=== PATIENT | female | born 1945 | race Caucasian/White ===

== ENCOUNTER 2017-08-22 15:45 | Emergency (ER) | payer OTHER ==
[~2017-08-22] VITALS: Ht 162.6 cm; Wt 102.1 kg
[~2017-08-22 15:45] MED LIST: ASPIRIN81 M4 PO; ATENOLOL25 M1 PO; BIOTIN1 M1 PO; CIPRO500 M1 PO; COD LIVER OIL1 EAC2 PO; DAILY MULTIPLE1 EACH PO; FLAGYL500 MG PO; LEVSIN0.125 M1 PO; MAGNESIUM OXID400 M1 PO; NEXIUM40 M1 PO; PERCOCET 5-3251 EACH PO; VENLAFAXINE HC150 MG PO; VESICARE10 MG PO; VITAMIN B-121000 MC3 PO; VITAMIN E400 UNIT PO
[2017-08-22 16:21] LABS: ABSOLUTE BASOPHIL COUNT 0 /CUMM (0.0-0.2); ABSOLUTE EOSINOPHIL COUNT 0.3 /CUMM (0.0-0.7); ABSOLUTE GRANULOCYTE CT 3.5 /CUMM (1.4-6.5); ABSOLUTE LYMPH COUNT 1.8 /CUMM (1.2-3.4); ABSOLUTE MONOCYTE COUNT 0.5 /CUMM (0.10-0.60); BASOPHIL % 0.3 % (0.0-2.0); EOSINOPHIL % 4.2 % (0-5); GRANULOCYTE % 57.3 % (42.2-75.2); HEMATOCRIT 41.8 % (37-47); MEAN CORPUSCULAR HGB 29.7 PG (27.0-31.0); MEAN CORPUSCULAR HGB CONC 33.7 G/DL (33.0-37.0); MEAN CORPUSCULAR VOLUME 88.2 FL (81.0-99.0); PLATELET COUNT 225 /CUMM (130-400); RBC DISTRIBUTION WIDTH 13.2 % (11.5-14.5); RED BLOOD CELL CT 4.74 /CUMM (4.20-5.40); WHITE BLOOD CELL COUNT 6.1 /CUMM (4.8-10.8)
[2017-08-22 16:30] LABS: PT 11.3 SEC (9.4-12.5); PTT 28 SEC (25-37)
--- NOTE | 2017-08-22 17:51 | ED GI/GU/ABDOMINAL COMPLAINT ---
History of Present Illness General Chief Complaint: General Adult Stated Complaint: SIB WALKIN, BLOOD IN STOOL, +ND, X 3 DAYS Source: patient Exam Limitations: no limitations Vital Signs & Intake/Output Vital Signs & Intake/Output Vital Signs Date Time Temp Pulse Resp B/P B/P Pulse O2 O2 Flow FiO2 Mean Ox Delivery Rate 08/22 2016 97.2 68 20 136/72 97 Room Air 08/22 1551 96.1 66 16 148/89 97 Room Air ED Intake and Output 08/23 0000 08/22 1200 Intake Total Output Total Balance Patient 225 lb Weight Weight Reported by Patient Measurement Method Allergies Coded Allergies: ceftriaxone (From ROCEPHIN) (Intermediate, ITCHING 03/17/16) Penicillins (THROAT CLOSES 03/17/16) Reconcile Medications Aspirin (Aspirin*) 81 MG TAB.CHEW 1 TAB PO DAILY heart (Reported) HOLD ASPIRIN FOR 10 MORE DAYS Atenolol 25 MG TABLET 1 TAB PO DAILY HEART (Reported) Biotin 1 MG TABLET 1 TAB PO DAILY SUPPLEMENT (Reported) Cyanocobalamin (Vitamin B-12) 1,000 MCG TABLET 1 TAB PO DAILY SUPPLEMENT ( Reported) Esomeprazole (Nexium) 40 MG CAPSULE.DR 1 CAP PO DAILY GI (Reported) Magnesium Oxide 400 MG TABLET 1 TAB PO DAILY SUPPLEMENT (Reported) Multivitamin (Daily Multiple Vitamin) 1 EACH TABLET 1 TAB PO DAILY SUPPLEMENT (Reported) Om3/Dha/Epa/Cod Liver Oil/A/D3 (Cod Liver Oil Softgel) 240-1,000MG CAPSULE 1 CAP PO DAILY SUPPLEMENT (Reported) Oxycodone HCl/Acetaminophen (Percocet 5-325 MG Tablet) 5 MG-325 MG TABLET 1 TAB PO BID severe pain Solifenacin Succinate (Vesicare) 10 MG TABLET 1 TAB PO DAILY BLADDER ( Reported) Venlafaxine HCl (Venlafaxine HCl ER) 150 MG CAP.ER.24H 1 CAP PO DAILY DEPRESSION (Reported) Vitamin E Mixed (Vitamin E) 400 UNIT CAPSULE 1 CAP PO DAILY SUPPLEMENT ( Reported) Triage Note: 72 Y/O FEMALE C/O DIARRHEA SINCE SATURDAY; STATES SHE NOTICED SOME BLOOD IN TOILET BOWEL AND ALSO SOME BLOOD ON TOILET PAPER. DENIES PAIN. +OCCASIONAL CRAMPING IN ABDOMEN BUT DENIES AT PRESENT. +"QUEASY" FEELING TO STOMACH. AFEBRILE WAS SENT TO ED BY URGENT CARE RESTRICTED BAND TO L ARM - HX BREAST CA Triage Nurses Notes Reviewed? yes ? N Is pt currently ? No Onset: Abrupt Duration: day(s): (3), constant Timing: recent history Radiation: no radiation HPI: 72-year-old female comes into the emergency room for further evaluation of some abdominal cramping as well as an episode of blood in her stool 3 days ago with diarrhea. Patient reports that she started with some constipation 3 days ago. She's noticed a small bright red blood clot that passed. Since that she's had some loose stool but denies any recurrent blood in multiple bowel movements. The only blood was that initial episode 3 days ago. She had some straining at that time when she used the bathroom. She reports some intermittent cramping of her abdomen. Denies any fever chills vomiting. Denies any anticoagulants. She 's had routine colonoscopies in the past. (Diaz Salas) Past History Travel History Traveled to [place] past 21 day No Medical History Any Pertinent Medical History? see below for history Neurological: NONE EENT: NONE Cardiovascular: PALPITATIONS Respiratory: asthma Gastrointestinal: GASTRITIS hemorrhoids Hepatic: NONE Renal: NONE Musculoskeletal: osteoarthritis Psychiatric: depression Endocrine: NONE Blood Disorders: NONE Cancer(s): breast cancer LABEL MAKER/Reproductive: NONE History of MRSA: No History of VRE: No History of CDIFF: No Surgical History Surgical History: appendectomy, L BREAST LUMPECTOMY BILATERAL KNEE REPLACEMEN Psychosocial History Who do you live with Patient/Self Services at Home None What is your primary language Tristanian Tobacco Use: Quit >30 days ago Family History Family History, If Any: SISTER FH: breast cancer grandmother FH: breast cancer Hx Contributory? No (Diaz Salas) Review of Systems Review of Systems Constitutional: Reports: no symptoms. EENTM: Reports: no symptoms. Respiratory: Reports: no symptoms. Cardiovascular: Reports: no symptoms. GI: Reports: see HPI. Genitourinary: Reports: no symptoms. Musculoskeletal: Reports: no symptoms. Skin: Reports: no symptoms. Neurological/Psychological: Reports: no symptoms. Hematologic/Endocrine: Reports: no symptoms. Immunologic/Allergic: Reports: no symptoms. All Other Systems: Reviewed and Negative (Diaz Salas) Physical Exam Physical Exam General Appearance: well developed/nourished, no apparent distress, alert Head: atraumatic, normal appearance Eyes: Bilateral: normal appearance. Ears, Nose, Throat, Mouth: hearing grossly normal, moist mucous membrane Neck: normal inspection Respiratory: no respiratory distress Gastrointestinal: soft, non-tender Rectal: heme negative stool, hemmorrhoids (EXTERNAL, NO THROMBOSIS) Back: normal inspection Extremities: normal range of motion Neurologic/Psych: awake, alert Skin: intact, normal color Core Measures ACS in differential dx? No Sepsis Present: No Sepsis Focused Exam Completed? No (Diaz Salas) Progress Differential Diagnosis: colon cancer, Diverticulitis, diverticulosis, ischemic colitis, hemorrhoids, anal fissure, Plan of Care: Orders Procedure Date/time Status MISTAKE 08/22 155 Active TROPONIN LEVEL 08/22 155 Complete PARTIAL THROMBOPLASTIN TIME 08/22 155 Complete PROTHROMBIN TIME 08/22 155 Complete COMPREHENSIVE METABOLIC PANEL 08/22 155 Complete CBC WITHOUT DIFFERENTIAL 08/22 155 Complete EKG 08/22 155 Active TYPE & SCREEN (NOT X-MATCH) 08/22 155 Complete Laboratory Tests 08/22/17 1615: Anion Gap 11, Estimated GFR > 60, BUN/Creatinine Ratio 20.0, Glucose 91, Calcium 9.1, Total Bilirubin 0.4, AST 23, ALT 28, Alkaline Phosphatase 71, Troponin I < 0.01, Total Protein 7.5, Albumin 4.2, Globulin 3.3, Albumin/Globulin Ratio 1.3, PT 11.3, INR 1.04, APTT 28, CBC w Diff NO MAN DIFF REQ, RBC 4.74, MCV 88.2, MCH 29.7, MCHC 33.7, RDW 13.2, MPV 7.0 L, Gran % 57.3, Lymphocytes % 29.4, Monocytes % 8.8, Eosinophils % 4.2, Basophils % 0.3, Absolute Granulocytes 3.5, Absolute Lymphocytes 1.8, Absolute Monocytes 0.5, Absolute Eosinophils 0.3, Absolute Basophils 0 08/22/17 1556: Urine Color Cancelled, Urine Clarity Cancelled, Urine pH Cancelled, Ur Specific [place] Cancelled, Urine Protein Cancelled, Urine Ketones Cancelled, Urine Nitrite Cancelled, Urine Bilirubin Cancelled, Urine Urobilinogen Cancelled, Ur Leukocyte Esterase Cancelled, Ur Microscopic Cancelled, Urine Hemoglobin Cancelled, Urine Glucose Cancelled Microbiology 08/22 1821 STOOL: Cryptosporidium Antigen - CAN Cancelled: SPECIMENS NEVER RECEIVED. PATIENT DEPARTED [facility] 08/22 1821 STOOL: Giardia Antigen (JEREMÍAS) - CAN Cancelled: SPECIMENS NEVER RECEIVED. PATIENT DEPARTED ER 08/22 1821 STOOL: Clostridium difficile Toxin A & B - CAN Cancelled: SPECIMENS NEVER RECEIVED. PATIENT DEPARTED [facility] 08/22 1821 STOOL: Stool Culture - CAN Cancelled: SPECIMENS NEVER RECEIVED. PATIENT DEPARTED ER Diagnostic Imaging: Viewed by Me: CT Scan. Discussed w/RAD: CT Scan. Radiology Impression: PATIENT: DENY AJCQUES PRESENT AGE: 72 PATIENT ACCOUNT NO: [id number] : 43 LOCATION: [facility] ORDERING PHYSICIAN: Diaz BELCHER SERVICE DATE: 08/22/17 EXAM TYPE: CAT - CT ABD & PELVIS W/O IV CONTRAS EXAMINATION: CT ABDOMEN AND PELVIS WITHOUT CONTRAST CLINICAL INFORMATION: Lower abdominal cramping COMPARISON: 03/17/2016 TECHNIQUE: Multidetector volumetric imaging was performed from the superior aspect of the liver through the pubic symphysis. Sagittal and coronal reformatted images were obtained on the technologist's workstation. DLP: 985 mGy -cm FINDINGS: LUNG BASES: The visualized lung bases are unremarkable. LIVER, GALLBLADDER, AND BILIARY TREE: The liver is normal in size, shape, and attenuation. No focal hepatic lesion or biliary ductal dilatation is present. The gallbladder is unremarkable with no evidence of radiopaque gallstones, gallbladder wall thickening, or obvious pericholecystic inflammatory changes. PANCREAS: Unremarkable. SPLEEN: Unremarkable. ADRENAL GLANDS: Unremarkable. KIDNEYS AND URETERS: The kidneys are normal in size, shape, and attenuation. No hydronephrosis, hydroureter, or calculi seen. No perinephric stranding. There are single cysts in each kidney. BLADDER: Unremarkable. GASTROINTESTINAL TRACT: No focal inflammatory process or obstruction. ABDOMINAL WALL: No significant hernia is appreciated. LYMPH NODES: Normal. VASCULAR: Scattered atherosclerotic calcifications. PELVIC VISCERA: The uterus is absent. OSSEOUS STRUCTURES: No suspicious lesions. IMPRESSION: No focal inflammatory process or obstruction. Bilateral renal cysts. DICTATED BY: Marko Soto MD DATE/TIME DICTATED:1856 TURNING SANDER OPERATOR:[email or web address] DATE/TIME TRANSCRIBED:08/22/171856 CONFIDENTIAL, DO NOT COPY WITHOUT APPROPRIATE AUTHORIZATION. <Electronically signed in Other Vendor System> SIGNED BY: Marko Soto MD 08/22/171910 Initial ED EKG: none Comments: 08/22/2017 8:37:26 PM Patient unable to provide stool sample here. Hemodynamically stable. No acute abdominal pain on exam. No acute findings. Follow-up PCP. Return if any concerns. No current abdominal pain. (Diaz Salas) Departure Departure Disposition: HOME OR SELF CARE Condition: Stable Clinical Impression Primary Impression: Diarrhea Secondary Impressions: Abdominal pain, Blood in stool Referrals: Du Russo MD (PCP/Family) Additional Instructions: Follow-up with your primary care doctor. Return if any concerns worsening symptoms. Please go over all results of today's visit with your primary care doctor. Contact your primary care doctor to let them know you were here in the emergency room. There may be nonspecific findings which may not be related to your visit today here in the emergency room but may require further evaluation and chronic monitoring by your primary care doctor. If you had a laceration today the chance of foreign body always remains. You should follow-up with your primary care doctor for recheck in 3-5 days for a wound check. If you had an x-ray done there is a chance that a fracture could have been missed on initial read and you should follow-up with your primary care doctor for repeat x-rays if symptoms persist. If your blood pressure was elevated here in the emergency room please have rechecked by [facility] primary care doctor within the next 48. If you were prescribed a narcotic here in the emergency room or any type of controlled substances you're not allowed to drive while taking this medication or operate any type of heavy machinery. Narcotics can make you feel lightheaded dizziness nausea and can cause constipation. You may need to picking belt operator a stool softener. Thank you for choosing [facility] emergency room. Please return to the emergency room immediately if you have any other concerns worsening of symptoms. Departure Forms: Customer Survey General Discharge Information (Diaz Salas) PA/EDITORIAL PROJECT MANAGER Co-Sign Statement Statement: ED Attending supervision documentation- x I saw and evaluated the patient. I have also reviewed all the pertinent lab results and diagnostic results. I agree with the findings and the plan of care as documented in the PA's/EDITORIAL PROJECT MANAGER's documentation. [] I have reviewed the ED Record and agree with the PA's/EDITORIAL PROJECT MANAGER's documentation. [] Additions or exceptions (if any) to the PAs/EDITORIAL PROJECT MANAGER's note and plan are summarized below: [] (Bryce JOHNS,Royal)
--- NOTE | 2017-08-22 19:11 | CT SCAN REPORT ---
EXAMINATION: CT ABDOMEN AND PELVIS WITHOUT CONTRAST CLINICAL INFORMATION: Lower abdominal cramping COMPARISON: 03/17/2016 TECHNIQUE: Multidetector volumetric imaging was performed from the superior aspect of the liver through the pubic symphysis. Sagittal and coronal reformatted images were obtained on the technologist's workstation. DLP: 985 mGy-cm FINDINGS: LUNG BASES: The visualized lung bases are unremarkable. LIVER, GALLBLADDER, AND BILIARY TREE: The liver is normal in size, shape, and attenuation. No focal hepatic lesion or biliary ductal dilatation is present. The gallbladder is unremarkable with no evidence of radiopaque gallstones, gallbladder wall thickening, or obvious pericholecystic inflammatory changes. PANCREAS: Unremarkable. SPLEEN: Unremarkable. ADRENAL GLANDS: Unremarkable. KIDNEYS AND URETERS: The kidneys are normal in size, shape, and attenuation. No hydronephrosis, hydroureter, or calculi seen. No perinephric stranding. There are single cysts in each kidney. BLADDER: Unremarkable. GASTROINTESTINAL TRACT: No focal inflammatory process or obstruction. ABDOMINAL WALL: No significant hernia is appreciated. LYMPH NODES: Normal. VASCULAR: Scattered atherosclerotic calcifications. PELVIC VISCERA: The uterus is absent. OSSEOUS STRUCTURES: No suspicious lesions. IMPRESSION: No focal inflammatory process or obstruction. Bilateral renal cysts.
[2017-08-22 20:17] VITALS: BP 136/72
== END 2017-08-22 20:21 ==
LOC: ERH 15:45
PROVIDERS: Emergency Medicine
DX: R19.7 Diarrhea, unspecified (principal); K92.1 Melena; R10.9 Unspecified abdominal pain
CPT/HCPCS: 74176; 87045; 87328; 87329; 93005; 93010